=== PATIENT | female | born 1995 | race Caucasian/White ===

== ENCOUNTER 2021-01-20 10:38 | Emergency (ER) | payer SELFPAY ==
[2021-01-20 11:15] VITALS: TEMP 98
[2021-01-20] MEDS ORDERED: LIDODERM 5% PATC1 EA TP (12:31)
[2021-01-20 12:43] VITALS: BP 122/85; PULSE 78
== END 2021-01-20 12:44 | disposition home or self-care (01) ==
LOC: COL.ER 10:38
DX: S46.812A Strain of other muscles, fascia and tendons at shoulder and upper arm level, left arm, initial encounter (principal); X50.9XXA Other and unspecified overexertion or strenuous movements or postures, initial encounter; Y99.0 Civilian activity done for income or pay; Y92.59 Other trade areas as the place of occurrence of the external cause

== ENCOUNTER 2021-12-01 15:26 | Emergency (ER) | payer SELFPAY ==
[~2021-12-01] VITALS: Ht 165.1 cm; Wt 93.6 kg
[~2021-12-01 15:26] MED LIST: LIDODERM 5% PATC1 EA TP
[2021-12-01 15:34] VITALS: BP 133/82; TEMP 98.1
[2021-12-01 15:43] VITALS: PULSE 75
== END 2021-12-01 15:43 | disposition home or self-care (01) ==
LOC: COL.ER 15:26
DX: S40.022A Contusion of left upper arm, initial encounter (principal); Y04.8XXA Assault by other bodily force, initial encounter; Y92.59 Other trade areas as the place of occurrence of the external cause; Y99.0 Civilian activity done for income or pay